=== PATIENT | female | born 1990 | race American Indian/Alaskan Native ===

== ENCOUNTER 2018-07-25 14:03 | Emergency (ER) | payer MEDICAID, OTHER ==
[2018-07-25 14:29] VITALS: BP 117/84
--- NOTE | 2018-07-25 14:29 | Emergency Department Report ---
Blank Doc - Documentation Documentation: 28 y o female presenst with abd pain with n/v , states ate 2 hot dogs prior to sxs and cat keep food down no active vomitting, non tender abd ua,upt, acc eval
[2018-07-25 15:59] LABS: HCG Qualitative,Urine Positive (Negative)
[2018-07-25 16:00] LABS: Bilirubin,Urine NEG (Negative); Blood,Urine NEG (Negative); Color,Urine Yellow (Yellow); Mucus,Urine FEW /HPF; Protein,Urine <15 mg/dL mg/dL (Negative); Urobilinogen,Urine < 2.0 mg/dL (<2.0)
[2018-07-25] MEDS ORDERED: TYLENOL PO ONE (16:54)
--- NOTE | 2018-07-25 18:31 | Ultrasound Report ---
PROCEDURE: US OB <= 14 WEEKS FETUS TECHNIQUE: HISTORY: preg with abd pain/ COMPARISONS: FINDINGS: Endometrial stripe is thickened measuring 1.68 cm there is small amount of fluid seen a definitive ge stational sac is not identified. No pole or yolk sac seen. Right ovary is 4.5 x 1.9 x 2.7 cm The left ovary is 4.6 x 2.7 x 3.4 cm there is a 2.4 cm left ovarian cyst IMPRESSION: No pole identified. Thickened endometrium with a small saclike structure noted. No yolk sac david ntified Cannot rule out very early gestation, occult ectopic or missed AB. Continued follow-up recommended. This document is electronically signed by Jesse Rudolph MD., July 25 2018 06:29:52 PM ET
--- NOTE | 2018-07-25 18:38 | Ultrasound Report ---
PROCEDURE: US OB TRANSVAGINAL TECHNIQUE: Ultrasound obstetrical transvaginal HISTORY: preg with abd pain/ COMPARISONS: FINDINGS: There is a irregular saclike structure within the uterus with some internal echoes present. No defini tive pole or yolk sac identified. Endometrial stripe is thickened Right ovary is 4.5 x 1.9 x 2.7 cm Left ovary 4.6 x 2.2 x 3.4 cm. A 2.4 cm left ovarian cyst noted IMPRESSION: Small saclike structure within the uterus. No definitive pole identified at this time. Continue d follow-up recommended. This document is electronically signed by Jesse Rudolph MD., July 25 2018 06:36:16 PM ET
--- NOTE | 2018-07-25 18:45 | Emergency Department Report ---
ED General Adult HPI - General Chief complaint: Abdominal Pain Stated complaint: CHEST/ABD PAIN Time Seen by Provider: 07/25/18 14:27 Source: patient Mode of arrival: Ambulatory Limitations: No Limitations - History of Present Illness Initial comments: Patient is a 28-year-old female who is presenting with body aches for the last 2-3 days. Patient states she has a mild cough as well. Patient also states she's had some lower abdominal discomfort but denies dysuria vaginal discharge or vaginal bleeding. Patient's last period was 06/19/2018. Severity scale (0 -10): 6 Quality: aching Consistency: constant Associated Symptoms: chest pain, cough, headaches, malaise. denies: confusion, diaphoresis, fever/chills, loss of appetite, nausea/vomiting, rash, seizure, shortness of breath, syncope, weakness - Related Data Allergies Allergy/AdvReac Type Severity Reaction Status Date / Time No Known Allergies Allergy Verified 07/25/18 14:04 ED Review of Systems ROS: Stated complaint: CHEST/ABD PAIN Other details as noted in HPI Comment: All other systems reviewed and negative ED Past Medical Hx - Past Medical History Additional medical history: Heart murmur - Social History Smoking Status: Never Smoker Substance Use Type: Marijuana ED Physical Exam - General Limitations: No Limitations General appearance: alert, in no apparent distress - Head Head exam: Present: atraumatic, normocephalic - Eye Eye exam: Present: normal appearance - ENT ENT exam: Present: mucous membranes moist - Neck Neck exam: Present: normal inspection - Respiratory Respiratory exam: Present: normal lung sounds bilaterally. Absent: respiratory distress, wheezes, rales, rhonchi - Cardiovascular Cardiovascular Exam: Present: regular rate, normal rhythm. Absent: systolic murmur, diastolic murmur, rubs, gallop - GI/Abdominal GI/Abdominal exam: Present: soft, normal bowel sounds. Absent: distended, tenderness, guarding, rebound, rigid - Extremities Exam Extremities exam: Present: normal inspection - Back Exam Back exam: Present: normal inspection - Neurological Exam Neurological exam: Present: alert, oriented X3 - Psychiatric Psychiatric exam: Present: normal affect, normal mood - Skin Skin exam: Present: warm, dry, intact, normal color. Absent: rash ED Course Vital Signs 07/25/18 14:26 Temperature 98.4 F Pulse Rate 68 Respiratory 16 Rate Blood Pressure 117/84 O2 Sat by Pulse 100 Oximetry ED Medical Decision Making - Lab Data Lab Results 07/25/18 07/25/18 Range/Units 14:57 16:59 HCG, Quant 3630 H (0-4) mIU/mL Urine Color Yellow (Yellow) Urine Turbidity Clear (Clear) Urine pH 6.0 (5.0-7.0) Ur Specific Ly[place] 1.025 (1.003-1.030) Urine Protein <15 mg/dl (Negative) mg/dL Urine Glucose (UA) Neg (Negative) mg/dL Urine Ketones Tr (Negative) mg/dL Urine Blood Neg (Negative) Urine Nitrite Neg (Negative) Ur Reducing Substances Not Reportable Urine Bilirubin Neg (Negative) Urine Ictotest Not Reportable Urine Urobilinogen < 2.0 (<2.0) mg/dL Ur Leukocyte Esterase Neg (Negative) Urine WBC (Auto) 6.0 (0.0-6.0) /HPF Urine RBC (Auto) 2.0 (0.0-6.0) /HPF U Epithel Cells (Auto) 1.0 (0-13.0) /HPF Urine Mucus Few /HPF Urine HCG, Qual Positive A (Negative) - Radiology Data [facility] [address] [place] [address] Ultrasound Report Signed Patient: JARROD CRAVEN MR#: [id number] : 1990 Acct:[id number] Age/Sex: 28 / F ADM Date: 07/25/18 Loc: ED Attending Dr: Ordering Physician: TENA GARCIA MD Date of Service: 07/25/18 Procedure(s): US OB transvaginal Accession Number(s): [id number] cc: TENA GARCIA MD PROCEDURE: US OB TRANSVAGINAL TECHNIQUE: Ultrasound obstetrical transvaginal HISTORY: preg with abd pain/ COMPARISONS: FINDINGS: There is a irregular saclike structure within the uterus with some internal echoes present. No definitive pole or yolk sac identified. Endometrial stripe is thickened Right ovary is 4.5 x 1.9 x 2.7 cm Left ovary 4.6 x 2.2 x 3.4 cm. A 2.4 cm left ovarian cyst noted IMPRESSION: Small saclike structure within the uterus. No definitive pole identified at this time. Continued follow-up recommended. This document is electronically signed by Jesse Jalloh MD., July 25 2018 06:36:16 PM ET Transcribed By: LINDA Dictated By: YOUSUF JALLOH MD Electronically Authenticated By: YOUSUF JALLOH MD Signed Date/Time: 07/25/18 1838 DD/ TD/TT: 07/25/18 1753 - Medical Decision Making Squats was 3000 and only a small saclike structure was found in the uterus. Patient will need repeat ultrasound and beta Quant.. Critical care attestation.: If time is entered above; I have spent that time in minutes in the direct care of this critically ill patient, excluding procedure time. ED Disposition Clinical Impression: Qualifiers: Weeks of gestation: less than 8 weeks Qualified Code(s): Z3A.01 - Less than 8 weeks gestation of Disposition: DC-01 TO HOME OR SELFCARE Is pt being admited?: No Does the pt Need Aspirin: No Condition: Stable Instructions: (ED) Additional Instructions: Please ensure that you follow up with your [facility] within the next week. You will need an additional ultrasound to confirm that the fetus has a heartbeat. Also please return to the emergency department if you experience worsening pain or vaginal bleeding. Referrals: [facility] [Provider Group] - 3-5 Days Time of Disposition: 18:45
== END 2018-07-25 18:48 | disposition home or self-care (01) ==
LOC: ED 14:03
DX: O26.891 Other specified pregnancy related conditions, first trimester (principal); Z3A.01 Less than 8 weeks gestation of pregnancy; F12.10 Cannabis abuse, uncomplicated
CPT/HCPCS: 36415; 76801; 76817; 81001; 81025; 84702

== ENCOUNTER 2018-08-02 14:02 | Emergency (ER) | payer MEDICAID ==
--- NOTE | 2018-08-02 14:25 | Emergency Department Report ---
Blank Doc - Documentation Documentation: This is a 28-year-old female that presents with vaginal bleeding. Stated is about 5 weeks . This initial assessment/diagnostic orders/clinical plan/treatment(s) is/are subject to change based on patient's health status, clinical progression and re- assessment by fellow clinical providers in the ED. Further treatment and workup at subsequent clinical providers discretion. Patient/guardians urged not to elope from the ED as their condition may be serious if not clinically assessed and managed. Initial orders include: 1- Patient sent to [facility] for further evaluation and treatment 2- labs 3- US OB
[2018-08-02 15:19] LABS: Basophils % (Auto) 0.7 % (0.0-1.8); Eosinophils % (Auto) 0.1 % (0.0-4.3); Hematocrit 30.4 % (30.3-42.9); Hemoglobin 10.1 gm/dl (10.1-14.3); Lymphocytes # (Auto) 2.2 K/mm3 (1.2-5.4); Lymphocytes % (Auto) 40.4 % (13.4-35.0); Mean Corpuscular HGB Conc 33 % (30-34); Monocytes # (Auto) 0.4 K/mm3 (0.0-0.8); Monocytes % (Auto) 7.6 % (0.0-7.3); Platelet Count 299 K/mm3 (140-440); Red Blood Count 4.55 M/mm3 (3.65-5.03); Red Cell Distribution Width 14.9 % (13.2-15.2)
[2018-08-02 15:20] LABS: Mean Corpuscular Volume 67 fl (79-97)
--- NOTE | 2018-08-02 15:23 | Emergency Department Report ---
ED Abdominal Pain HPI - General Chief Complaint: Vaginal Bleeding Stated Complaint: 4WKS /BLEEDING Time Seen by Provider: 08/02/18 14:24 Source: patient Mode of arrival: Ambulatory Limitations: No Limitations - History of Present Illness Initial Comments: Patient is a 28-year-old -[place] female comes to the ER today with vaginal bleeding during . She states that she thinks her last menstrual cycle was in May. She has been here once already with this . She did not follow-up with an [facility]. She comes in today with vaginal bleeding. This is her second . She has one living child. However, the was a twin that she lost the first trimester. Patient is ambulatory and nontoxic. - Related Data Allergies Allergy/AdvReac Type Severity Reaction Status Date / Time No Known Allergies Allergy Verified 08/02/18 14:06 ED Review of Systems ROS: Stated complaint: 4WKS /BLEEDING Other details as noted in HPI Comment: All other systems reviewed and negative ED Past Medical Hx - Past Medical History Additional medical history: Heart murmur - Surgical History Past Surgical History?: No - Family History Family history: no significant - Social History Smoking Status: Never Smoker Substance Use Type: Marijuana ED Physical Exam - General Limitations: No Limitations General appearance: alert - Head Head exam: Present: atraumatic - Eye Eye exam: Present: normal appearance, PERRL - ENT ENT exam: Present: mucous membranes moist - Neck Neck exam: Present: normal inspection - Respiratory Respiratory exam: Present: normal lung sounds bilaterally - Cardiovascular Cardiovascular Exam: Present: regular rate - GI/Abdominal GI/Abdominal exam: Present: soft, normal bowel sounds - Rectal Rectal exam: Present: deferred - Extremities Exam Extremities exam: Present: normal inspection, full ROM - Back Exam Back exam: Present: normal inspection, full ROM - Neurological Exam Neurological exam: Present: alert, oriented X3 - Psychiatric Psychiatric exam: Present: normal affect, normal mood - Skin Skin exam: Present: warm, dry, intact ED Course Vital Signs 08/02/18 14:27 Temperature 98.3 F Pulse Rate 62 Respiratory 16 Rate Blood Pressure 106/52 O2 Sat by Pulse 100 Oximetry ED Medical Decision Making - Lab Data Result diagrams: 08/02/18 14:33 - Radiology Data Radiology results: report reviewed, image reviewed - Medical Decision Making G2 PA LMP 06/13- SHE THINKS SECOND ER VISIT FOR THIS PREG INC HCG US NOTED PT EDUCATED ON PLAN OF CARE SHE SHOULD SEE OBGYN FOR REPEAT LABS WITHING 48 HORUS Vital Signs 08/02/18 14:27 Temperature 98.3 F Pulse Rate 62 Respiratory 16 Rate Blood Pressure 106/52 O2 Sat by Pulse 100 Oximetry Lab Results 08/02/18 08/02/18 08/02/18 Range/Units 14:33 14:33 14:53 WBC 5.5 (4.5-11.0) K/mm3 RBC 4.55 (3.65-5.03) M/mm3 Hgb 10.1 (10.1-14.3) gm/dl Hct 30.4 (30.3-42.9) % MCV 67 L (79-97) fl MCH 22 L (28-32) pg MCHC 33 (30-34) % RDW 14.9 (13.2-15.2) % Plt Count 299 (140-440) K/mm3 Lymph % (Auto) 40.4 H (13.4-35.0) % Meigs % (Auto) 7.6 H (0.0-7.3) % Eos % (Auto) 0.1 (0.0-4.3) % Baso % (Auto) 0.7 (0.0-1.8) % Lymph # 2.2 (1.2-5.4) K/mm3 Meigs # 0.4 (0.0-0.8) K/mm3 Eos # 0.0 (0.0-0.4) K/mm3 Baso # 0.0 (0.0-0.1) K/mm3 Seg Neutrophils % 51.2 (40.0-70.0) % Seg Neutrophils # 2.8 (1.8-7.7) K/mm3 HCG, Quant 79270 H (0-4) mIU/mL Urine Color (Yellow) Urine Turbidity (Clear) Urine pH (5.0-7.0) Ur Specific Ashley (1.003-1.030) Urine Protein (Negative) mg/dL Urine Glucose (UA) (Negative) mg/dL Urine Ketones (Negative) mg/dL Urine Blood (Negative) Urine Nitrite (Negative) Urine Bilirubin (Negative) Urine Urobilinogen (<2.0) mg/dL Ur Leukocyte Esterase (Negative) Urine WBC (Auto) (0.0-6.0) /HPF Urine RBC (Auto) (0.0-6.0) /HPF U Epithel Cells (Auto) (0-13.0) /HPF Urine Bacteria (Auto) (Negative) /HPF Hyaline Casts /LPF Urine Mucus /HPF Urine Yeast (Budding) /HPF Blood Type O POSITIVE Antibody Screen Negative 08/02/18 Range/Units Unknown WBC (4.5-11.0) K/mm3 RBC (3.65-5.03) M/mm3 Hgb (10.1-14.3) gm/dl Hct (30.3-42.9) % MCV (79-97) fl MCH (28-32) pg MCHC (30-34) % RDW (13.2-15.2) % Plt Count (140-440) K/mm3 Lymph % (Auto) (13.4-35.0) % Meigs % (Auto) (0.0-7.3) % Eos % (Auto) (0.0-4.3) % Baso % (Auto) (0.0-1.8) % Lymph # (1.2-5.4) K/mm3 Meigs # (0.0-0.8) K/mm3 Eos # (0.0-0.4) K/mm3 Baso # (0.0-0.1) K/mm3 Seg Neutrophils % (40.0-70.0) % Seg Neutrophils # (1.8-7.7) K/mm3 HCG, Quant (0-4) mIU/mL Urine Color Yellow (Yellow) Urine Turbidity Clear (Clear) Urine pH 5.0 (5.0-7.0) Ur Specific Ashley 1.031 H (1.003-1.030) Urine Protein 30 mg/dl (Negative) mg/dL Urine Glucose (UA) Neg (Negative) mg/dL Urine Ketones 20 (Negative) mg/dL Urine Blood Lg (Negative) Urine Nitrite Neg (Negative) Urine Bilirubin Neg (Negative) Urine Urobilinogen 2.0 (<2.0) mg/dL Ur Leukocyte Esterase Tr (Negative) Urine WBC (Auto) 9.0 H (0.0-6.0) /HPF Urine RBC (Auto) > 182.0 (0.0-6.0) /HPF U Epithel Cells (Auto) 1.0 (0-13.0) /HPF Urine Bacteria (Auto) 1+ (Negative) /HPF Hyaline Casts 2 /LPF Urine Mucus 3+ /HPF Urine Yeast (Budding) 1+ /HPF Blood Type Antibody Screen Critical care attestation.: If time is entered above; I have spent that time in minutes in the direct care of this critically ill patient, excluding procedure time. ED Disposition Clinical Impression: , Subchorionic hematoma in first trimester Disposition: DC- TO HOME OR SELFCARE Is pt being admited?: No Does the pt Need Aspirin: No Condition: Stable Instructions: (ED) Additional Instructions: PELVIC REST FOLLOW UP OBGYN REX WITHING 48H REFERRAL BELOW DIET TOLERATED AVOID CIG., ALCOHOL AND DRUGS HYDRATE WELL WITH WATER Referrals: TANYA RIDER MD [Primary Care Provider] - 3-5 Days EPHRAIM JUAN MD [Staff Physician] - 3-5 Days Forms: Work/School Release Form(ED) Time of Disposition: 18:20
[2018-08-02 16:42] LABS: Bacteria,Urine 1+ /HPF (Negative); Bilirubin,Urine NEG (Negative); Blood,Urine LG (Negative); Color,Urine Yellow (Yellow); Hyaline Casts,Urine 2 /LPF; Mucus,Urine 3+ /HPF
[2018-08-02 16:43] LABS: RBC,Urine > 182.0 /HPF (0.0-6.0)
--- NOTE | 2018-08-02 18:18 | Ultrasound Report ---
. PROCEDURE: US OB <= 14 WEEKS FETUS TECHNIQUE: Transabdominal and transvaginal pelvic ultrasound HISTORY: vaginal bleeding COMPARISONS: July 25 FINDINGS: There is a single viable intrauterine . Yolk sac and pole identified. The crown-rump length corresponds to a gestational age of 6 weeks . The heart rate is 105 bpm. There is a relatively large subchorionic hemorrhage measuring approximately 2.8 cm in diameter surrou nding approximately 50% of the gestational sac. Thick-walled structure in the left ovary consistent with corpus luteum. Right ovary normal in contour and echotexture. No evidence of adnexal masses or fluid in the pelvic cul-de-sac. IMPRESSION: . Single viable intrauterine at approximately 6 weeks of gestation. Relatively large subchorionic hemorrhage surrounding approximately 50% of the gestational sac. Corpus luteum in the left ovary. No adnexal masses or fluid in the pelvic cul-de-sac. This document is electronically signed by Delmer Coronado MD., August 02 2018 06:16:43 PM ET
[2018-08-02 18:34] VITALS: BP 116/78
== END 2018-08-02 18:34 | disposition home or self-care (01) ==
LOC: ED 14:02
DX: O43.891 Other placental disorders, first trimester (principal); Z3A.08 8 weeks gestation of pregnancy
CPT/HCPCS: 36415; 76801; 76817; 81001; 84702; 85025; 86850; 86900; 86901

== ENCOUNTER 2019-03-28 02:16 | Inpatient (IN) | payer MEDICAID ==
[2019-03-28] MEDS ORDERED: ePHEDrine SULFATE 50 MG/1 ML INJ IV PRN (02:56)
[2019-03-28] MEDS ORDERED: MINERAL OIL 30 ML ORAL LIQD PO PRN (02:56)
[2019-03-28] MEDS ORDERED: ONDANSETRON 4 MG/2 ML INJ IV PRN ×2 (02:56→04:21)
[2019-03-28] MEDS ORDERED: BUTORPHANOL 2 MG/1 ML INJ IV PRN (02:56)
[2019-03-28] MEDS ORDERED: fentaNYL 100 MCG/2 ML INJ IV PRN (02:56)
[2019-03-28] MEDS ORDERED: LIDOCAINE (2%) 20 MG/1 ML VIAL 20 ML MDV INFILTRATI ONE (02:56)
[2019-03-28] MEDS ORDERED: TERBUTALINE 1 MG/1 ML INJ SUB-Q PRN (02:56)
[2019-03-28] MEDS ORDERED: AMPICILLIN/NS 2 GM/100 ML 2 GM/100 ML BAG IV ONE (02:56)
[2019-03-28] MEDS ORDERED: LACTATED RINGERS 1,000 ML IV SCH (03:00)
[2019-03-28] MEDS ORDERED: OXYTOCIN 20 UNIT/1000ML DRIP 20 UNITS/1,000 ML BAG IV SCH (03:00)
--- NOTE | 2019-03-28 03:19 | History and Physical Report ---
History of Present Illness Date of examination: 03/28/19 Date of admission: 03/28/2019 Chief complaint: Active labor History of present illness: 29 yo, @ 40.1 wks gestation, initiated care with [facility] at 11.3 wks gestation. Her has been complicated by anemia, Heart murmur (managed by [facility]),Rubella and Varicella non-immune, Vit D deficiency, Trich positive (PAMELA negative on 10/24/18). She presents to [facility] with reports of painful ctxs for the past 3-4 hrs. Reports + FM, denies VB or LOF. Labs: O+, antibody negative; Rubella non-immune; VDRL non-reactive; HBsAg negative; HIV negative; platelets 318k; GC/Chlamydia negative; Vit D 10.1; Varicella non- immune; MSAFP/Multiple markers negative; 1 hr gtt 163; 3 hr gtt: 93/146/141/93; GBS negative. Past History Past Medical History: arrhythmia (Murmur, diagnosed at age 12) Past Surgical History: no surgical history [facility] [employer] [facility]IONS History: chlamydia (07/2018), gonorrhea (2011; 2018), trichomonas (07/2018) Family/Genetic History: none Social history: single, lives with family, full code. denies: smoking, alcohol abuse, prescription drug abuse, IV drug use - Obstetrical History Expected Date of Delivery: 03/27/19 Actual Gestation: 40 Week(s) 1 Day(s) : 2 Para: 1 Hx # Term Pregnancies: 1 Number of Pregnancies: 0 Spontaneous Abortions: 0 Induced : 0 Number of Living Children: 1 #1 Gender: Male year: 2[birth year] Birthweight: 3.118 kg Method of Delivery: Vaginal Gestational age at delivery: 39 Complications: none Medications and Allergies Allergies Allergy/AdvReac Type Severity Reaction Status Date / Time coconut AdvReac Itching Verified 03/28/19 03:07 Active Meds: Active Medications Butorphanol Tartrate (Stadol) 2 mg IV Q2H PRN PRN Reason: Pain , Severe (7-10) Ephedrine Sulfate (Ephedrine Sulfate) 10 mg IV Q2M PRN PRN Reason: Hypotension Fentanyl (Sublimaze) 100 mcg IV Q2H PRN PRN Reason: Labor Pain Oxytocin/Sodium Chloride (Pitocin/Ns 20 Unit/1000ml Drip) 20 units in 1,000 mls @ 125 mls/hr IV DIRECT JANI Lactated Ringer's (Lactated Ringers) 1,000 mls @ 125 mls/hr IV DIRECT JANI Ampicillin Sodium (Ampicillin/Ns 2 Gm/100 Ml) 2 gm in 100 mls @ 100 mls/hr IV ONCE ONE; Protocol Stop: 03/28/19 03:55 Mineral Oil (Mineral Oil) 30 ml PO QHS PRN PRN Reason: Constipation Ondansetron HCl (Zofran) 4 mg IV Q8H PRN PRN Reason: Nausea And Vomiting Terbutaline Sulfate (Brethine) 0.25 mg SUB-Q ONCE PRN PRN Reason: Hyperstimulation/Hypertonicity Review of Systems All systems: negative Genitourinary: contractions - Physical Exam Breasts: Positive: normal Cardiovascular: Regular rate Lungs: Positive: Normal air movement Abdomen: Positive: other (gravid) Genitourinary (Female): Positive: normal external genitalia, normal perenium Vagina: Positive: normal moisture Uterus: Positive: enlarged (S=D) Extremities: Positive: normal Deep Tendon Reflex Grade: Normal +2 - Obstetrical FHR: category 1 Uterine Contraction Monitor Mode: External Cervical Dilatation: 6 Cervical Effacement Percentage: 90 station: 0 Uterine Contraction Frequency (min): 2 Uterine Contraction Pattern: Regular Uterine Tone Measurement Phase: Resting Uterine Contraction Intensity: Strong/Firm Results Result Diagrams: 03/28/19 02:30 All other labs normal. Assessment and Plan - Patient Problems (1) 40 weeks gestation of Current Visit: Yes Status: Acute Plan to address problem: Admit to L & D Epidural as desired Anticipate (2) Rubella non-immune status, antepartum Current Visit: Yes Status: Acute (3) Maternal varicella, non-immune Current Visit: Yes Status: Acute (4) Anemia Current Visit: Yes Status: Acute Qualifiers: Anemia type: iron deficiency Plan to address problem: Continue daily oral iron supplementation PP
[2019-03-28 03:25] LABS: Hematocrit 30.2 % (30.3-42.9); Hemoglobin 9.8 gm/dl (10.1-14.3); Mean Corpuscular HGB Conc 33 % (30-34); Platelet Count 252 K/mm3 (140-440); Red Blood Count 4.32 M/mm3 (3.65-5.03); Red Cell Distribution Width 15.1 % (13.2-15.2)
[2019-03-28 03:42] LABS: Mean Corpuscular Volume 70 fl (79-97)
[2019-03-28] MEDS ORDERED: MAGNESIUM HYDROXIDE (MOM) ORAL LIQD UDC PO PRN (04:21)
[2019-03-28] MEDS ORDERED: WITCH HAZEL/ GLYCERIN PAD TP PRN (04:21)
[2019-03-28] MEDS ORDERED: PROMETHAZINE 25 MG TAB PO PRN (04:21)
[2019-03-28] MEDS ORDERED: oxyCODONE /ACETAMINOPHEN 5-325MG TAB PO PRN (04:21)
[2019-03-28] MEDS ORDERED: LANOLIN/ZINC/DIMETHICONE (LANSINOH) 7 GM TP PRN (04:21)
[2019-03-28] MEDS ORDERED: diphenhydrAMINE 25 MG CAP PO PRN (04:21)
--- NOTE | 2019-03-28 04:33 | Procedure Note ---
OB Delivery Note - Delivery Date of Delivery: 03/28/19 (0358) Surgeon: GEMMA CHAVEZ (CNM) Estimated blood loss: 300cc - Vaginal Delivery presentation: vertex Delivery position: OA Intrapartum events: precipitous labor- <3hr Delivery induction: none Delivery monitor: external FHT, external uterine Route of delivery: Delivery placenta: spontaneous (0410) Delivery cord: 3 umbilical vessels Episiotomy: none Delivery laceration: none Anesthesia: none Delivery comments: Entered room to find viable, crying female delivered laying on maternal abdomen. Cord double clamped and cut by FOB after cessation of pulsation. Placenta spontaneously delivered, shook, disposed per hospital policy. Uterus @ U-2, hemostasis maintained. Perineum intact. Mother and baby safe, stable and bonding well. - Infant A at 1 minute: 8 at 5 minutes: 9 Gender: Female (Weight: 3277 gms (7lbs 3.5ozs) 19 inches)
[2019-03-28] MEDS: IBUPROFEN 600 MG TAB PO SCH ×3 (06:19→23:28)
[2019-03-28] MEDS: FERROUS SULFATE 325 MG TAB PO SCH ×2 (09:58→23:28)
[2019-03-28] MEDS: PRENATAL VIT27-FE FUMARATE-FOLIC ACID VIT TAB PO SCH (09:58)
[2019-03-28 15:42] LABS: Hemoglobin 7.7 gm/dl (10.1-14.3)
[2019-03-28] MEDS ORDERED: IRON DEXTRAN COMPLEX 100 MG/2 ML INJ IM ONE (23:00)
[2019-03-29] MEDS: IBUPROFEN 600 MG TAB PO SCH ×4 (05:14→23:29)
[2019-03-29] MEDS: PRENATAL VIT27-FE FUMARATE-FOLIC ACID VIT TAB PO SCH (10:00)
[2019-03-29] MEDS: FERROUS SULFATE 325 MG TAB PO SCH ×2 (10:00→22:42)
--- NOTE | 2019-03-29 12:09 | Progress Note ---
Assessment and Plan A: PPD#1 s/p Asymptomatic anemia (Infed Given) Stable P: Routine PP care Continue Ferrous sulfate 325mg PO BID Anticipate d/c 03/30/2019 Subjective - Subjective Date of service: 03/29/19 Principal diagnosis: PPD#1 s/p Interval history: See H&P and delivery note Patient reports: appetite normal, voiding normally, pain well controlled, ambulating normally [place]: doing well, nursing well Objective - Vital Signs Latest vital signs: Vital Signs Temp Pulse Resp BP BP Pulse Ox 03/29/19 08:40 97.8 F 70 18 116/72 100 03/29/19 05:57 54 L 20 90/53 100 03/29/19 01:55 98.5 F 72 20 149/85 100 03/28/19 22:35 69 18 132/77 100 03/28/19 16:15 98.0 F 68 18 112/64 Intake and Output 03/28/19 03/29/19 03/29/19 23:59 07:59 15:59 Intake Total 840 240 240 Balance 840 240 240 Intake: Oral 480 240 240 Intake, Free Water 360 Other: Total, Intake Amount 480 240 240 # Voids Void 2 1 1 - Exam Breasts: Present: normal, Cardiovascular: Present: Regular rate, Normal S1, Normal S2, No murmurs Lungs: Present: Clear to auscultation, Normal air movement Abdomen: Present: normal appearance, soft, normal bowel sounds, abnormal bowel sounds. Absent: distention Vulva: both: normal Uterus: Present: firm, fundal height at umbilicus Extremities: Present: normal Deep Tendon Reflex Grade: Normal +2 - Labs Labs: Abnormal lab results 03/28/19 Range/Units 15:17 Hgb 7.7 L (10.1-14.3) gm/dl Hct 24.0 L D (30.3-42.9) %
--- NOTE | 2019-03-29 12:11 | Discharge Summary ---
Providers - Providers Date of Admission: 03/28/19 04:31 Date of discharge: 03/30/19 Attending physician: JAYMIE SEYMOUR MD Primary care physician: JAYMIE SEYMOUR MD Hospitalization Reason for admission: active labor, IUP at term Delivery: Procedure details: See delivery note Episiotomy: none Other procedures: none complications: none Discharge diagnosis: IUP at term delivered [place] baby: female Condition at discharge: Good Disposition: DC-01 TO HOME OR SELFCARE Plan - Provider Discharge Summary Activity: routine, no sex for 6 weeks, no heavy lifting 4 weeks, no strenuous exercise Diet: routine Instructions: routine Additional instructions: [] Smoking cessation referral if applicable(refer to patient education folder for contact #) [] Refer to [facility] Booklet Call your doctor immediately for: * Fever > 100.5 * Heavy vaginal bleeding ( >1 pad per hour) * Severe persistent headache * Shortness of breath * Reddened, hot, painful area to leg or breast * Drainage or odor from incision. * Keep incision clean and dry at all times and follow doctor's instructions regarding bathing/showering Continue Ferrous sulfate 2 times daily for anemia - Follow up plan Follow up: JAYMIE SEYMOUR MD [Primary Care Provider] - 6 Weeks
[2019-03-30] MEDS: IBUPROFEN 600 MG TAB PO SCH ×2 (06:00→10:06)
[2019-03-30] MEDS: FERROUS SULFATE 325 MG TAB PO SCH (10:05)
[2019-03-30] MEDS: PRENATAL VIT27-FE FUMARATE-FOLIC ACID VIT TAB PO SCH (10:06)
[2019-03-30 13:54] VITALS: BP 121/68
== END 2019-03-30 16:00 | disposition home or self-care (01) | DRG 775 ==
LOC: TRG 02:16 → LD 03:08 → TRG 04:30 → LD 04:31 → OB 05:50
PROVIDERS: ADMIT Obstetrics & Gynecology; ATTEND Obstetrics & Gynecology
PROC: 10E0XZZ Delivery of Products of Conception, External Approach (ICD-10-PCS; principal; 2019-03-28)
DX: O62.3 Precipitate labor (principal); O99.02 Anemia complicating childbirth; D50.0 Iron deficiency anemia secondary to blood loss (chronic); Z3A.40 40 weeks gestation of pregnancy; Z37.0 Single live birth
CPT/HCPCS: 36415; 85014; 85018; 85027; 86592; 86850; 86900; 86901; G0378; A6250; J1750; J2405; J2590; J3010; J7120

== ENCOUNTER 2020-12-19 07:01 | Day surgery (SDC) | payer MEDICAID ==
--- NOTE | 2020-12-19 07:53 | Anesthesia Consultation ---
Anesthesia Consult and Med Hx Date of service: 12/19/20 - Airway Anesthetic Teeth Evaluation: Chipped ROM Head & Neck: Adequate Mental/Hyoid Distance: Adequate Mallampati Class: Class II Intubation Access Assessment: Good - Pre-Operative Health Status ASA Pre-Surgery Classification: ASA2 Proposed Anesthetic Plan: General - Pulmonary Hx Smoking: Yes - Cardiovascular System Hx Heart Murmur: Yes (Resolved) - Central Nervous System Hx Psychiatric Problems: No - Gastrointestinal Hx Gastroesophageal Reflux Disease: No - Endocrine Hx Non-Insulin Dependent Diabetes: No - Hematic Hx Anemia: Yes Hx Sickle Cell Disease: No - Other Systems Hx Substance Use: Yes (Marijuana daily) Hx Cancer: No Hx Obesity: No
--- NOTE | 2020-12-19 07:53 | Anesthesia Day of Surgery ---
Anesthesia Day of Surgery - Day of Surgery Patient Examined: Yes Patient H&P Reviewed: Yes Patient is NPO: Yes
[2020-12-19] MEDS ORDERED: MIDAZOLAM 2 MG/2 ML INJ IV NR (08:00)
[2020-12-19] MEDS ORDERED: MAGNESIUM OXIDE 400 MG TAB PO SCH (08:00)
[2020-12-19] MEDS ORDERED: HYDROmorphone 1 MG/1 ML INJ IV PRN ×2 (08:00)
[2020-12-19] MEDS ORDERED: LACTATED RINGERS 1,000 ML IV SCH (08:00)
[2020-12-19] MEDS ORDERED: CELECOXIB 200 MG CAP PO NR (08:00)
[2020-12-19] MEDS ORDERED: ACETAMINOPHEN 325 MG TAB PO SCH (08:00)
[2020-12-19] MEDS ORDERED: ONDANSETRON 4 MG/2 ML INJ IV PRN (08:00)
[2020-12-19] MEDS ORDERED: GLYCOPYRROLATE 0.4 MG/2 ML INJ ONE (09:00)
[2020-12-19] MEDS ORDERED: NEOSTIGMINE 10MG/10 ML INJ MDV ONE (09:00)
[2020-12-19] MEDS ORDERED: KETOROLAC 30 MG/1 ML INJ ONE (09:00)
[2020-12-19] MEDS ORDERED: HYDROmorphone 1 MG/1 ML INJ ONE (09:04)
[2020-12-19] MEDS ORDERED: LIDOCAINE MPF (2%) 20 MG/1 ML VIAL 5 ML ONE (09:04)
[2020-12-19] MEDS ORDERED: propofoL 200 MG/20 ML VIAL IV ONE (09:04)
[2020-12-19] MEDS ORDERED: ROCURONIUM 50 MG/5 ML INJ IV ONE (09:04)
[2020-12-19] MEDS ORDERED: dexAMETHasone 20 MG/5 ML VIAL ONE (09:06)
[2020-12-19] MEDS ORDERED: ONDANSETRON 4 MG/2 ML INJ ONE (09:06)
--- NOTE | 2020-12-19 09:22 | Operative Report ---
Operative Report Operative Report: Preoperative diagnosis:Multiparity desiring permanent surgical sterilization Postoperative diagnosis:Same Procedure:Operative laparoscopic bilateral tubal ligation via fulguration Surgeon:Dr. Angi Mullins Anesthesia:GETA Complication:none EBL:Less than 100 ml IV fluids:1 Liter crystalloid Urine output:Adequate, clear Drain:None Findings:,No abdominal pathology uterus tubes and ovaries normal Procedure: Patient was consented in preop holding about risks benefits possible complications as well as alternatives to the procedure. After informed consent was obtained patient was taken to the operating room. She received excellent general endotracheal anesthesia and with no complication. She was then placed in the dorsal lithotomy position, prepped and draped in a sterile fashion. A timeout was verified, a Bradley catheter was placed atraumatically. A speculum was placed in the vaginal vault, the parametria was noted to be pink with no masses lesions or nodularity. The cervix was identified, grasped with a single- tooth tenaculum, and an acorn uterine manipulator was placed atraumatically. Attention then turned to the abdomen. An umbilical incision was made with a scalpel, taken down to the fascia which was incised sharply atraumatically. Veress needle was placed in the abdomen atraumatically, correct placement of the Veress needle was confirmed with warm water syringe test.The abdomen was then appropriately insufflated to allow for safe passage of a trocar. A 10 mm trocar was then introduced atraumatically. Correct placement of the trocar was confirmed under direct visualization. The patient was placed in steep Trendelenburg. A second incision was made in the left lower quadrant, a 5 mm trocar was introduced atraumatically into the abdomen. Using an Endo shear the fallopian tubes were fulgurated bilaterally. Excellent hemostasis. Intra- abdominal pictures were taken. At the completion of the procedure both trochars were removed atraumatically under direct visualization. The fascia was closed with 0 Vicryl, the skin closed with Monocryl. Pressure dressings were applied at both incision sites. The uterine manipulator and speculum were removed from the cervix and the vagina respectively. The Bradley catheter was removed. The patient was extubated and taken to the recovery area in stable condition. Her family was notified of her stable condition immediately following the completion of the procedure. There were no complications. EBL less than 50 mL. All sponge needle and instrument counts were correct x2. Abby Mullins MD
[2020-12-19] MEDS ORDERED: SODIUM CHLORIDE 0.9% IRR 1,000 ML BOTTLE IR ONE (09:50)
--- NOTE | 2020-12-19 12:16 | Post Anesthesia Evaluation ---
- Post Anesthesia Evaluation Patient Participated: Yes Airway Patent: Yes Stable Respiratory Function: Yes Nausea/Vomiting: No Temp > 96.8F: Yes Pain Manageable: Yes Adequeate Hydration: Yes Anesthesia Complications: No Block Receding Appropriately: Not Applicable Patient on Ventilator: No
[2020-12-19 13:48] VITALS: BP 109/85
== END 2020-12-19 12:55 | disposition home or self-care (01) ==
LOC: OR 07:01
PROVIDERS: ATTEND Obstetrics & Gynecology
DX: Z30.2 Encounter for sterilization (principal); F17.210 Nicotine dependence, cigarettes, uncomplicated; Z79.899 Other long term (current) drug therapy; Z98.890 Other specified postprocedural states
CPT/HCPCS: 58670; 81025; J1100; J1170; J1885; J2250; J2405; J2704; J2710; J7120